=== PATIENT | female | born 1985 | race Two or more races ===

== ENCOUNTER 2019-09-19 12:16 | Day surgery (SDC) | payer OTHER ==
[~2019-09-19 12:16] MED LIST: EFFEXOR XR75 MG PO
[2019-09-20] MEDS ORDERED: PERCOCET 5-3251 EACH PO ×2 (11:49)
[2019-09-20] MEDS ORDERED: COLACE100 MG PO ×2 (11:49)
[2019-09-20] MEDS ORDERED: NEURONTIN300 MG PO ×2 (11:49)
== END 2019-09-19 15:40 | disposition home or self-care (01) ==
LOC: AMB-ENDOS 12:16
PROVIDERS: ATTEND Surgery
DX: K62.89 Other specified diseases of anus and rectum (principal); K64.8 Other hemorrhoids

== ENCOUNTER 2019-09-20 10:08 | Day surgery (SDC) | payer OTHER ==
[2019-09-20] MEDS ORDERED: COLACE100 MG PO ×2 (11:49)
[2019-09-20] MEDS ORDERED: PERCOCET 5-3251 EACH PO ×2 (11:49)
[2019-09-20] MEDS ORDERED: NEURONTIN300 MG PO ×2 (11:49)
== END 2019-09-20 19:15 | disposition home or self-care (01) ==
LOC: CIR.AMB 10:08 → ADM 13:45 → CIR.AMB 19:15
PROVIDERS: ATTEND Surgery
DX: K64.8 Other hemorrhoids (principal)